=== PATIENT | female | born 1950 | race African-American/Black ===

== ENCOUNTER 2017-11-26 15:14 | Emergency (ER) | payer MEDICARE, MEDICAID ==
[~2017-11-26] VITALS: Ht 175.3 cm; Wt 63.0 kg
[~2017-11-26 15:14] MED LIST: AMLO5TAB4 PO; ASPI-1158 PO; ASPI-1160 PO; LOVA20TA2 PO
[2017-11-26 21:33] VITALS: BP 139/87
== END 2017-11-26 21:46 | disposition home or self-care (01) ==
LOC: ER 17:28
DX: R09.81 Nasal congestion (principal); I10 Essential (primary) hypertension; Z79.82 Long term (current) use of aspirin
CPT/HCPCS: 99283